=== PATIENT | female | born 1990 | race Caucasian/White ===

== ENCOUNTER 2020-12-06 09:08 | Emergency (ER) | payer OTHER, SELFPAY ==
[2020-12-06 09:17] VITALS: BP 119/73; PULSE 55; RESP 18; TEMP 37.2; O2SAT 100
--- NOTE | 2020-12-06 09:45 | ED.FEMALEGU ---
HPI - Female Genitourinary General Chief complaint: Urogenital-Female Stated complaint: poss kidney infection Time Seen by Provider: 12/06/20 09:40 Source: patient, RN notes reviewed and old records reviewed Mode of arrival: ambulatory Limitations: no limitations History of Present Illness HPI Narrative: 30 year old female who presents to [facility] care with complaints of right lower back pain which radiates to her side but does not go into her abdomen since 6pm last night. Patient states that she has history of urinary tract infections in the past but has never had a kidney stone. Patient denies any known fevers, chills or sweats or any nausea or vomiting or diarrhea, admits to burning with urination and frequency. Patient states that she didn't sleep hardly at all last night due to her discomfort, has not taken any OTC medications. MD elicited complaint: flank pain Related Data Home Medications Medication Instructions Recorded Confirmed Iud 12/06/20 Allergies Allergy/AdvReac Type Severity Reaction Status Date / Time NUTMEG Allergy Severe HIVES, Uncoded 12/06/20 09:30 facial and throat swelling Review of Systems Review of Systems: Narrative: CONSTITUTIONAL: Denies fever, chills, or sweats. EYES: Denies visual changes, redness, or discharge. ENT: Denies rhinorrhea, congestion, sore throat, or otalgia. CARDIOVASCULAR: Denies chest pain, palpitations, or edema. RESPIRATORY: Denies cough or dyspnea. GASTROINTESTINAL: right sided back pain radiating to her side but not into the lower abdominal area,no nausea, vomiting, or diarrhea. GENITOURINARY:positive dysuria or hematuria. SKIN: Denies rash or itching. MUSCULOSKELETAL: right sided back pain,no joint pain, or myalgia. NEUROLOGIC: Denies headache, numbness, or weakness. PSYCHIATRIC: Denies anxiety or depression. All systems reviewed & are unremarkable except as noted in HPI and below PMFSH Past Medical History Medical History (Updated 12/06/20 @ 10:01 by Maliha Nelson NP) UTI (urinary tract infection) Surgical History Surgical History (Updated 12/06/20 @ 09:50 by Maliha Nelson NP) Hx of appendectomy Hx of tonsillectomy Social History Social History (Updated 12/06/20 @ 09:51 by Maliha Nelson NP) Smoking status: Never smoker Alcohol intake: current Alcohol use details: social Substance use: never Living arrangements: with family Gender identity (if verbalized by the patient): Female Comments At time of signature, agree with nursing past medical, surgical, social and family history. There is no relevant family history pertinent to the presenting complaint Exam Narrative: Exam Narrative: GENERAL: Well-appearing, well-nourished, and in no acute distress. HEAD: Normocephalic, atraumatic. EYES: PERRLA and EOMI. ENT: Nares clear, no rhinorrhea or epistaxis. Mucous membranes moist. TM's normal with good light reflex, throat pink with no lesions or exudates, NECK: Supple. no lymphadenopathy CHEST: Clear to auscultation. No respiratory distress.SAO2 100% on room air HEART: Regular rate and rhythm. No murmur heard. Normal peripheral pulses. ABDOMEN: Soft, nontender, nondistended, normal active bowel sounds some radiation of pain from right lower back to right side but not into abdomen. pain on palpation to right back EXTREMITIES: Normal range of motion. No edema. SKIN: Warm, dry, no rash. NEURO: No focal deficits. Alert and oriented x3. Course Vital Signs Vital signs: Vital Signs Temperature 37.2 C 12/06/20 09:17 Pulse Rate 55 L 12/06/20 09:17 Respiratory Rate 18 12/06/20 09:17 Blood Pressure 119/73 12/06/20 09:17 Pulse Oximetry 100 12/06/20 09:17 Temperature 37.2 C 12/06/20 09:17 Pulse Rate 55 L 12/06/20 09:17 Respiratory Rate 18 12/06/20 09:17 Blood Pressure 119/73 12/06/20 09:17 Pulse Oximetry 100 12/06/20 09:17 MDM - Female Genitourinary MDM Narrative Medical decision m
== END 2020-12-06 10:14 | disposition home or self-care (01) ==
PROVIDERS: Emergency Provider Registered Nurse
DX: N39.0 Urinary tract infection, site not specified (principal)
CPT/HCPCS: 81003; 87086; 87088; 99203; G0463

== ENCOUNTER 2022-10-20 10:43 | Outpatient (CLI) | payer OTHER, SELFPAY ==
--- NOTE | ~2022-10-20 | XR_ITS ---
EXAMINATION: XR chest 2V 10/20/2022 11:00 INDICATION: Cough for 10 days PROCEDURE: 2 view chest COMPARISON: No prior studies for comparison. FINDINGS: The lungs are clear. The cardiomediastinal silhouette is within normal limits. There are no pleural effusions. There is no pneumothorax suspected. IMPRESSION: 1: NO ACUTE CARDIOPULMONARY DISEASE. Reviewed, dictated and finalized at location L.
== END 2022-10-20 10:44 ==
PROVIDERS: PCP Physician Assistant; Visit Provider Physician Assistant
DX: R05.9 Cough, unspecified (principal)
CPT/HCPCS: 71046

== ENCOUNTER 2024-12-12 15:11 | Outpatient (CLI) | payer BC, SELFPAY ==
--- NOTE | ~2024-12-12 | US_ITS ---
COMPLETE AND LIMITED MATERNAL ULTRASOUND (Doppler ultrasound interrogation techniques used as n eeded for this exam.) Ordering provider: John Giron MD History: . anatomy . Comparison: None. Findings: : Single intrauterine fetus with heart rate measured at 159 bpm which is within normal limits. presentation: Vertex. Placenta: Posterior. 4.4 cm distance from the cervix. --SCREENING OF ANATOMY: Heart (4 chambers): Seen and unremarkable. Brain survey: Unremarkable. Lateral ventricle measures 0.6 cm. Cerebellum measures 1.8 cm. Nuchal fold measures 0.5 cm. Cisterna magna is 0.4 cm. Abdomen: Unremarkable. Kidneys measures 1 cm and 1.1 cm. Cord insertion: Unremarkable. 3 vessel cord: Present and unremarkable. Bladder: Unremarkable. Kidneys: Unremarkable. Spine: Unremarkable. -- BIOMETRICS: BPD: 45.8 mm = 19 weeks and 6 days HC: 164.6mm = 19 weeks and 1 day FL: 30.5 mm = 19 weeks and 3 days AC: 147.8 mm = 20 weeks and 0 days HC/AC: 1.11. FL/BPD: 66.59. FL/AC: 20.64. CI: 80.35 Mean US age is 19 weeks and 4 days for an PRANEETH on April. Extrapolated weight is 308.75 g. EFW/GP is 85.1% Three vessel cord is seen. Amniotic fluid volume is subjectively within normal limits. No evidence f or significant placental anomalies including placenta previa. The cervical length is 3.7 cm which is within normal limits. MATERNAL: Otherwise, unremarkable limited maternal ultrasound. IMPRESSION: UNREMARKABLE COMPLETE AND LIMITED MATERNAL US. Single live fetus of Vertex presentation. Reviewed, dictated and finalized at location A.
== END 2024-12-12 15:12 | disposition home or self-care (01) ==
PROVIDERS: PCP Physician Assistant; Visit Provider Obstetrics & Gynecology
DX: Z36.9 Encounter for antenatal screening, unspecified (principal); Z3A.00 Weeks of gestation of pregnancy not specified
CPT/HCPCS: 76805

== ENCOUNTER 2025-03-14 14:23 | Outpatient (CLI) | payer BC, SELFPAY ==
[2025-03-14 15:29] LABS: Syphilis IgG/IgM Antibody Non-Reactive (Nonreactive)
== END 2025-03-14 14:24 | disposition home or self-care (01) ==
LOC: ANHLAB 14:24
PROVIDERS: PCP Physician Assistant; Visit Provider Nurse Practitioner Obstetrics & Gynecology
DX: Z34.90 Encounter for supervision of normal pregnancy, unspecified, unspecified trimester (principal); Z3A.00 Weeks of gestation of pregnancy not specified
CPT/HCPCS: 36415; 86593

== ENCOUNTER 2025-05-09 10:54 | Outpatient (CLI) | payer BC, SELFPAY ==
--- OUTSIDE RECORDS SUMMARY | 2025-05-09 11:40 | XMS_ITS | Encounter Summary ---
Author Organization [facility] Address [address] [place] [address] Care Team Providers Care Recycling Program Manager Name Role Phone Unavailable Primary Care Provider Unavailabl e Encounter Details Date Type Department Care Team (Late st Contact Info) Description 10/26/2022 Lab Requisition [facility] - Derm[facility] Lab [address] [place] [phone] Sheree Morris MD [address] [place] [address] [place] [phone] Neoplasm of uncertain behavior of skin Social History Tobacco Use Types Packs/Day Years Used Date Smoking Tobacco: Never Assessed Comments Unknown Sex and Gender Information Value Date Recorded Sex Assigned at Not on file Legal Sex Female 4:25 PM CDT Gender Identity Not on file Sexual Orientation Not on file documented as of this encounter Plan of Treatment Not on file documented as of this encounter Procedures Procedure Name Priority Date/Time Associated Diagnosis Comments DERMATOPATHOLOGY Routine 10/26/2022 3:33 AM CDT Neoplasm of uncertain behavior of skin [ICD-10-CM] documented in this encounter Results * DERMATOPATHOLOGY (10/26/2022 3:33 AM CDT) Case Report Dermatopathology Report Case: [id number] Authorizing Provider: Sheree Morris MD Collected: 10/26/2022 03:33 AM Ordering Location: [facility] Lab Received: 10/27/2022 04:55 PM Pathologist: Shae Graves MD Specimen: Skin, right inframammary 1:33 PM CDT DERMATOPATHOLOGY LABORATORY Final Diagnosis Specimen A. 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 The specimen consists of a shave biopsy measuring 7x5x2 mm. Jar 0. 3 1:33 PM CDT DERMATOPATHOLOGY LABORATORY Microscopic Description Specimen A. SKIN, right inframammary: There are nests of melanocytes at the dermal-epidermal junction and within the dermis. 3 1:33 PM CDT DERMATOPATHOLOGY LABORATORY Disclaimer An external and internal positive and negative controls are appropriate for the histochemical, immunohistochemical and immunofluorescence stain(s) in this case (if any), except where stated explicitly. The performance characteristics of the stain(s) cited in this report were developed and its performance characteristic determined by the Dermatopathology Laboratory at [facility], directed by Dr. Lalo Naylor. These tests need not be, and therefore are not, approved by the [place] Food and Drug Administration. The tests are used for clinical purposes. Billing Codes Specimen Charges Stain Charges 87173 1 3 1:33 PM CDT DERMATOPATHOLOGY LABORATORY Embedded Images 3 1:33 PM CDT DERMATOPATHOLOGY LABORATORY Pathology/Cytolo gy TISSUE SPECIMEN FROM SKIN / Unknown 10/26/2022 3:33 AM CDT 10/27/2022 4:55 PM CDT us Sheree Morris MD LAB - PATHOLOGY/CYTOLOGY ORDERAB LES Final Result DERMATOPATHOLOGY LABORATORY [facility] Department of Dermatology [address], [address] [phone] documented in this encounter Visit Diagnoses Diagnosis Neoplasm of uncertain behavior of skin documented in this encounter
--- OUTSIDE RECORDS SUMMARY | 2025-05-09 11:41 | XMS_ITS | Clinical Summary ---
Author Organization [facility] Address [address] [place] [address] Care Team Providers Care University Teacher Name Role Phone Unavailable Primary Care Provider Unavailabl e Source Comments [facility],non-owned Affiliates and Associated Physician Practices is amultiple site organization consisting of ambulatory clinics and hospital sitesin [place], [place], [place] and [place]. This disclosure is being madepursuant to the Care Everywhere program and may not contain all information available regarding this patient. Last updated 18.[facility] Social History Tobacco Use Types Packs/Day Years Used Date Smoking Tobacco: Never Assessed Comments Unknown Sex and Gender Information Value Date Recorded Sex Assigned at Not on file Legal Sex Female 4:25 PM CDT Gender Identity Not on file Sexual Orientation Not on file Plan of Treatment Health Maintenance Due Date Last Done Comments HIV SCREENING 09/13/2007 HEPATITIS C SCREENING 09/08/2010 DTAP/TDAP/TD VACCINES (1 - Tdap) 09/13/2011 HEPATITIS B VACCINE (1 of 3 - 19+ 3-dose series) 09/13/2011 Cervical Cancer Screening 2013 PAP SMEAR 2013 HPV VACCINE (1 - 3-dose SCDM series) 09/13/2019 PAP with HPV 2022 DEPRESSION SCREENING 06/05/2024 COVID-19 VACCINE (1 - 2024-2 6 season) 2025 INFLUENZA VACCINE (#1) 2025 ZOSTER VACCINE (1 of 2) 2042 HIB VACCINE Aged Out No longer eligi ble based on patient's age to complete this topic MENINGOCOCCAL (Group B) VACC INE SHARED DECISION-MAKING Aged Out No longer eligibl e based on patient's age to complete this topic MENINGOCOCCAL GROUPS A/C/Y/W VACCINE Aged Out No longer eligible b ased on patient's age to complete this topic PNEUMOCOCCAL VACCINE Aged Out No long er eligible based on patient's age to complete this [place] [place] [address] [facility] Address: [facility] [id number] [id number]
== END 2025-05-09 11:40 | disposition home or self-care (01) ==
LOC: ANHOBOP 11:38 → ANHLDR 11:39
PROVIDERS: PCP Physician Assistant; Visit Provider Obstetrics & Gynecology
DX: Z34.90 Encounter for supervision of normal pregnancy, unspecified, unspecified trimester (principal); Z3A.00 Weeks of gestation of pregnancy not specified
CPT/HCPCS: 84112

== ENCOUNTER 2025-05-11 15:40 | Inpatient (IN) | payer BC, SELFPAY ==
[2025-05-11] VITALS (14 sets, daily range): BP systolic 119–137; BP diastolic 67–99; PULSE 55–88; TEMP 36.6–37; BMI 35.4
--- OUTSIDE RECORDS SUMMARY | 2025-05-11 15:46 | XMS_ITS | Data Portability ---
Author Organization [facility] Address [address] [place] [address] Care Team Providers Care Sand Plant Attendant Name Role Phone CALLUM LUGO Baggage Smasher TONY TAVERAS [facility] crinologist Assessment No assessment recorded. Plan of Treatment Reminders Order Date Submit Date Provider Last Modified By Organization Details Last Modified Time Details Appointments None recorded. Lab None recorded. Referral None recorded. Procedures None recorded. Surgeries None recorded. Imaging None recorded. Medication Orders escitalopra m 10 mg tablet 2023 024 [id number], [address], [place], [place], [id number], 16:31:44 Patient TargetsNo targets recorded. Patient Instructions Encounter Date Encounter Id Patient Instructions Last Modified By Organization Details Last Modified Time 04/15/2024 [id number] A healthy lifestyle: care instructions [email or web address] Not available 04/15/2024 16:31:39 Reason for Referral None Reported. Results Created Date Observation Date Name Description Value Unit Range Abnormal Flag Note LastModifiedBy Organization Detail LastModifiedTime 12/18/1912/12/2024 US, obste tric No observ ation record ed. [email or web address] [facility] [address], [place], [address], 12/20/2024 11:06:25 04/23/2004/09/2025 US, obste tric No observ ation record ed. BARCODE Not Available 2024 15:31:26 Result Notes None recorded. Problems Name Problem SNOMED Code Status Onset Date Resolution Date Notes Provider Name and Address Organization Details Recorded Time Body mass index 25-29 - overweight 741019057 Active 2023 Phong Negrete MA null, [place] - [facility] 4 16:07:27 Generalized anxiety disorder 25035489 Active 2023 DAJUAN Lorenzo Attn: Accountin g,[address] [place], [address], [facility] - [facility] 4 11:02:57 Depressive disorder 96644065 Active 2023 DAJUAN Lorenzo Attn: Accountin g,[address] [place], [address], [facility] - [facility] 4 11:03:07 Overweight 444910067 Active 2023 DAJUAN Lorenzo Attn: Accountin g[address] [place], [address], [facility] - SI 4 11:03:19 Positive screening for depression on PHQ-9 (Patient Health Questionnai re 9) 5897928260766 00 Active 2023 DAJUAN Lorenzo Attn: Accountmontserrat g,[address] [place], [address], [facility] - [facility] 4 11:04:19 Problem Notes None recorded. Procedures Surgical History Date Name Laterality Status Provider Name and Address Organization Details Recorded Time Appendectomy completed Phong Negrete MA [place] - [facility] 04/15/2024 16:06:05 Tonsillectomy completed Phong Negrete [place] 04/15/2024 16:06:10 LEEP completed Phong Negrete MA [place] - [facility] 04/15/2024 16:06:15 Imaging Results None recorded. Procedure Notes None recorded. Medical Equipment None Reported. Allergies No known drug allergies Medications Name Sig Start Date Stop Date Status Note LastModified by Organization Details LastModified Time h.c.g trigger 6500units /ml INJECT 6,500 UNITS SUBCUTAN EOUSLY SINGLE DOSE DIRECTED TRIGGER WHEN INSTRUCT ED active Not Available Not Available No t Available sharp container USE TO DISPOSE OF NEEDLES active Not Available Not Available No t Available fed-ex priority overnight MON 10/08-TU10/09 TO PT HM NO SIGNATUR E DECLINED COUNSELI FRANCISCO J KRISHNAN active Not Available Not Available No t Available progester one (micro) 200mg supp UNWRAP AND INSERT 1 SUPPOSIT ORY VAGINALL Y TWICE DAILY active Not Available Not Available No t Available doxycycli ne hyclate 100 mg capsule TAKE 1 CAPSULE BY MOUTH TWICE DAILY WITH FOOD DIRECTED 04/15 completed Not Available Not Available Not Available sertralin e 100 mg tablet TAKE 1 TABLET BY MOUTH EVERY DAY AT BEDTIME 11/28 completed Not Available Not Available Not Available clobetaso l 0.05 % topical cream APPLY TOPICALL Y TO THE AFFECTED AREA TWICE DAILY FOR 2 WEEKS 04/15 completed Not Available Not Available Not Available ciproflox acin 500 mg tablet TAKE 1 TABLET BY MOUTH TWICE DAILY 04/15 completed Not Available Not Available Not Available lorazepam 0.5 mg tablet Take 1 tablet 3 times a day by oral route as needed. active not monthly just as need as neededdo not use during pregnanc y Not Available Not Available Not Available estradiol 2 mg tablet TAKE 1 TABLET BY MOUTH TWICE DAILY active Not Available Not Available No t Available hydrocort isone 2.5 % topical cream APPLY TO AFFECTED AREAS OF THE FACE TWICE DAILY FOR 2 WEEKS NEEDED active Not Available Not Available No t Available letrozole 2.5 mg tablet TAKE 2 TABLETS BY MOUTH DAILY DIRECTED . DO NOT. START UNTIL INST active Not Available Not Available No t Available methylpre dnisolone 4 mg tablets in a dose pack FOLLOW PACKAGE DIRECTIO NS 04/15 completed Not Available Not Available Not Available sertralin e 50 mg tablet TAKE 1 TABLET BY MOUTH IN THE MORNING 11/28 completed Not Available Not Available Not Available amoxicill in 875 mg-potass ium clavulana te 125 mg tablet TAKE 1 TABLET BY MOUTH TWICE DAILY 04/15 completed Not Available Not Available Not Available Sure Comfort Insulin Syringe 1 mL 29 gauge x 1/2 USE DIRECTED [H.C.G. MEDICATI ON] TRIGGER active Not Available Not Available No t Available escitalop dudley 10 mg tablet Take 1 tablet every day by oral route. 2023 active Not Available Not Available Not Avai lable Estarylla 0.25 mg-0.035 mg tablet Take 1 tablet every day by oral route for 28 days. active Not Available Not Available No t Available Vitals Date Recorded Systolic And Diastolic Provider Name and Address Organization Details Last Updated DateTime 04/15/2024 130/80 mm[Hg] DAJUAN Lorenzo Attn: Accounting,[address] [facility] [facility], [place], [address], [facility] 04/15/2024 16:30:12 Date Recorded Body weight Respiratory rate Body mass index (BMI) Body height Oxygen saturation Heart rate Systolic And Diastolic Provider Name and Address Organization Details Last Updated DateTime 4 41303.6 3 g 18 /min 28.9 kg/m2 154.94 cm 99 % 87 /min 130/82 mm[Hg] Phong Negrete MA [facility] 16:09:05 Social History Question Answer Notes LastModified by Organizat ion Details LastModified Time Tobacco Smoking Status Former Smoker Phong Negrete MA null, [facility] 04/15/2024 16:11:50 Do You Have An Advance Directive? No Information not available 04/15/2024 Are You Blind Or Do You Have Difficulty Seeing? No Glasses/co ntacts Information not available 04/15/2024 What Is Your Level Of Caffeine Consumption? Occasional Soda/ Coffee/ Tea 1x A Day Information not available 04/15/2024 In The 14 Days Before Symptom Onset, Have You Had Close Contact With A Laboratory-confir med COVID-19 While That Case Was Ill? No Information not available 04/15/2024 In The 14 Days Before Symptom Onset, Have You Had Close Contact With A Person Who Is Under Investigation For COVID-19 While That Person Was Ill? No Information not available 04/15/2024 Have You Been To An Area Known To Be High Risk For COVID-19? No Information not available 04/15/2024 Are You Deaf Or Do You Have Serious Difficulty Hearing? No Information not available 04/15/2024 What Type Of Diet Are You Following? REGULAR Information not available 04/15/2024 Are There Any Guns Present In Your Home? No Information not available 04/15/2024 What Was The Date Of Your Most Recent Tobacco Screening? 04/15/2024 Information not available 04/15/2024 What Is Your Current Pack Years? 10-19packyear s Information not available 04/15/2024 Do You Use Your Seat Belt Or Car Seat Routinely? Yes Information not available 04/15/2024 Do You Have Smoke And Carbon Monoxide Detectors In Your Home? Yes Information not available 04/15/2024 How Much Tobacco Do You Smoke? No Information not available 04/15/2024 Do You Use Sunscreen Routinely? Yes Daily Mostiurize r- No Tanning Only With Moose Information not available 04/15/2024 Has Tobacco Cessation Counseling Been Provided? No Information not available 04/15/2024 Sex: Unknown Functional Status Question Answer Note LastModified by Organizat ion Details LastModified Time Do you use any illicit or recreational drugs? No Information not available 04/15/2024 Do you or have you ever used any other forms of tobacco or nicotine? No Information not available 04/15/2024 What is your level of alcohol consumption? Occasional Information not available 04/15/2024 Are you currently employed? Yes Information not available 04/15/2024 Are you able to care for yourself independently? 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 Occasional walk every day Information not available 04/15/2024 Mental Status Question Answer Note LastModified by Organization D etails LastModified Time Do you feel stressed (tense, restless, nervous, or anxious, or unable to sleep at night)? [id number] Information not available 04/15/2024 Family History Relationship Description Onset Age of this Age Resolved Age Notes LastModified by Organization Details LastModified Time Mother Harmful pattern of use of alcohol [email or web address] Not available 2023 16:06:43 Mother Depressive disorder [email or web address] Not available 2023 16:06:53 Brother Harmful pattern of use of alcohol [email or web address] Not available 2023 16:06:43 Brother Depressive disorder [email or web address] Not available 2023 16:06:53 Father Depressive disorder tcarterma Not available 2023 16:06:53 Father Hypertensive disorder tcarterma Not available 2023 16:06:59 Medical History Condition Response Coronary Artery Disease N Other N Atrial Fibrillation N High Blood Pressure N Kidney or Bladder Problems N Thyroid Problems N GI Problems N Depression Y COPD N Blood Clots N Have you had a mammogram in the last yea r? N Skin Problems N Anemia N Heart Attack (MS) N Anxiety Disorder N Diabetes N Muscle, Joint, or Bone Problems N Seizures/Epilepsy N Have you had a colonoscopy in the last 1 0 years? N Acid Reflux (GERD) N Cancer N Stroke N Asthma N Allergies N Have you had a PSA blood test in the las t year? N High Cholesterol N Hepatitis N Liver Disease N Headaches N Osteoporosis N Heart Failure N Gynecological History Statement/Question Response Flow Moderate Date of LMP 03/27/2024 Menses Monthly Y Duration of Flow (days) 5 Current Control Method BCPs LMP Approximate Obstetrics History GPAL:G 0 P 0 0 0 0 Immunizations Vaccine Type Date Status Note Provider Nam e and Address Organization Details Recorded Time COVID-19, mRNA, LNP-S, PF, 30 mcg/0.3 mL dose 06/16/2021 completed Phong Negrete [place] null, [place] - [facility] 04/15/2024 15:58:25 COVID-19, mRNA, LNP-S, PF, 30 mcg/0.3 mL dose 10/27/2020 completed Phong Negrete [place], [place] [facility] 04/15/2024 15:58:25 COVID-19, mRNA, LNP-S, PF, 30 mcg/0.3 mL dose 11/23/2020 completed Phong Negrete [place], [place] [facility] 04/15/2024 15:58:25 Tdap 09/21/2021 completed Phong Negrete [place], [place] - [facility] 04/15/2024 15:58:25 Past Encounters Encounter ID Performer Location Encounter Start Date Encounter Closed Date Diagnosis/Indication Diagnosis SNOMED-CT Code Diagnosis ICD10 Code Diagnosis IMO Codes Diagnosis Note [id number] Hossein Lugo MD [facility] [place] [address] [place] [address] 04/15/2024 15:29:41 04/16/2024 10:15:50 Body mass index 25-29 - overweight 475188545 Z68.28 BMI is 28.9 Overweight 083667832 E66 .3 discussed healthy diet, exercise, controllin g carbohydra mily and added sugars in the diet Adult heal th examination 769114893 Z00.00 Annual wellness exam completed Generalize d anxiety disorder 00302164 F41.1 Refill on Lexapro 10 mg daily patient is stable on this regimen Depressive disorder 3548 9007 F32.A Stable on Lexapro 10 mg daily Sore throat 100660194 J0 2.9 Patient has a mild sore throat today which does appear related to drainage or viral continue to monitor. No signs of strep. Positive s creening for depression on PHQ-9 (Patient Health Questionnaire 9) 3042093967 68737 Z13.31 Patient scored a 10 on her screening today. A lot of this is related to the stress of infertilit y treatments . She does continue Lexapro 10 mg daily which is category safe. Health Concerns Section Related Observation LastModified by Organization Detai ls LastModified Time None Recorded Concern Status LastModified by Organization Details LastModified Time None Recorded Advance Directives Directive N: Payers Insurance Date Sequence Insurance Name Policy Number Policy George Covered Member ID George Member ID Guarantor Name 05/06/2024 1 [facility] [id number] [facility] [id number] Rhonda Sexton Notes Date Note Type Note Provider Name and Address Organization Details Recorded Time 04/15/2024 text/html Anxiety/Depressi onRe ported by PatientPatient is currently stable on Lexapro 10 mg daily. There is heightened anxiety and depression present during infertility treatments. Patient does need a refill Annual wellness exam DAJUAN Lorenzo Attn: Accounting[address] [facility], [place], [address], [facility] 05/03/2024 11:04:24 OBGyn Episode No OBEpisode recorded.
--- OUTSIDE RECORDS SUMMARY | 2025-05-11 15:46 | XMS_ITS | Clinical Summary ---
Author Organization [facility] [employer] Address [address] [place] [address] Care Team Providers Care Grip Assembler Name Role Phone Unavailable Primary Care Provider Unavailabl e Source Comments [facility] [employer],non-owned Affiliates and Associated Physician Practices is amultiple site organization consisting of ambulatory clinics and hospital sitesin [place], [place], [place] and [place]. This disclosure is being madepursuant to the Care Everywhere program and may not contain all information available regarding this patient. Last updated 18.[facility] [employer] Social History Tobacco Use Types Packs/Day Years [...] to complete this topic [place] [address] [employer]
--- OUTSIDE RECORDS SUMMARY | 2025-05-11 15:46 | XMS_ITS | Data Portability ---
Author Organization [facility] [employer], Main Office Address [address] [place] [address] Assessment No assessment recorded. Plan of Treatment Reminders Order Date Submit Date Provider Last Modified By Organization Details Last Modified Time Details Appointments None recorded. Lab CMP, serum or plasma 2022 023 [facility], [address], [place], [address], 3 14:36:05 urinalysis complete, reflex culture 2022 023 [facility], [address], [place], [address], 3 14:36:07 CBC w/ auto diff 2022 023 [facility], [address], [place], [address], 3 14:36:06 TSH + free T4, serum 2022 023 [facility], [address], [place], [address], 3 14:36:03 vitamin B12 + folate, serum or blood 2022 023 [facility], [address], [place], [address], 3 14:36:09 lipid panel, serum 2022 023 [id number], [address], [place], [address], 3 14:36:04 HbA1c (hemoglobin A1c), blood 2022 023 [id number], [address], [place], [address], 3 14:36:06 Referral None recorded. Procedures None recorded. Surgeries None recorded. Imaging XR, chest, 2 view - cough, drenching night sweats, chill x 10 days 2022 023 [facility], [facility], [address] [address], [place], [address], 3 12:10:14 Medication Orders sertraline 50 mg tablet 2022 023 [email or web address] [facility][id number], [address], [place], [id number], 4 14:54:29 Augmentin 875 mg-125 mg tablet 2022 023 [email or web address] 4 [facility][id number], [address], [place], [id number], 3 11:40:30 Medrol (Domingo) 4 mg tablets in a dose pack 2022 023 [email or web address] 4 [facility] #[id number], [address], [place], [id number], 3 11:40:33 Patient TargetsNo targets recorded. Patient InstructionsNo instructions recorded. Reason for Referral None Reported. Results Created Date Observation Date Name Description Value Unit Range Abnormal Flag Note LastModifiedBy Organization Detail LastModifiedTime 10/02/1910/02/2022 TSH+F REE T4 TSH 2.12 mIU/L normal Refer ence Range > or = 20 Years 0.40- 4.50 Pregn jason Range s First trime ster 0.26- 2.66 Secon d trime ster 0.55- 2.73 Third trime ster 0.43- 2.91 Not Available [address], [address], 10/02/2022 14:36:03 10/02/19 23 10/02/2022 TSH+F REE T4 T4, free 1.2 NG/dL 0.8-1. 8 normal Not Available [address], [address], 10/02/2022 14:36:03 10/02/19 23 10/02/2022 LIPID PANEL WITH RATIO S cholesterol, total 254 mg/dL <200 high Not Available [address], [address], 10/02/2022 14:36:04 10/02/19 23 10/02/2022 LIPID PANEL WITH RATIO S HDL cholesterol 76 mg/dL > or = 50 normal Not Available [address], [address], 10/02/2022 14:36:04 10/02/19 23 10/02/2022 LIPID PANEL WITH RATIO S triglyceride s 79 mg/dL <150 normal Not Available [address], [address], 10/02/2022 14:36:04 10/02/19 23 10/02/2022 LIPID PANEL WITH RATIO S LDL-choleste rol 160 mg/dL _(valentina c) high Refer ence range : <100 Dinah able range <100 mg/dL for prima ry preve ntion ; <70 mg/dL for patie nts with CHD or diabe tic patie nts with > or = 2 CHD risk facto rs. LDL-C is now calcu lated using the Alisson n-Hop helen membrenou renetta n, which is a valid ated novel metho piyush zayas acy than the Fried santiago equat ion in the estim ation of LDL-C . Alisson n SS et al. JESSICA. 2013; 310(9 0): 2061- 2068 (http ://ed ucati on.Karen pat JamHub. com/f aq/FA Q164) Not Available [employer] [address] [address] [place], [address], 10/02/2022 14:36:04 10/02/19 23 10/02/2022 LIPID PANEL WITH RATIO S chol/HDLC ratio 3.3 (calc ) <5.0 normal Not Available [facility] [address], [address], 10/02/2022 14:36:04 10/02/19 23 10/02/2022 LIPID PANEL WITH RATIO S LDL/HDL ratio 2.1 (calc ) Below avera ge Risk: <2.34 [place] ge Risk: 2.35- 4.12 Moder ate Risk: 4.13- 5.56 High Risk: >5.57 Not Available [employer] [address] [place], [address], 10/02/2022 14:36:04 10/02/19 23 10/02/2022 LIPID PANEL WITH RATIO S non HDL cholesterol 178 mg/dL _(valentina c) <130 high For patie nts with diabe mily plus 1 major ASCVD risk facto r, treat ing to a non-H DL-C goal of <100 mg/dL (LDL- C of <70 mg/dL ) is consi eliand a miguel pechucho c optio n. Not Available [facility] [address] [address] [place], [address], 10/02/2022 14:36:04 10/02/1910/02/2022 COMPR EHENS ROSEMARY METAB OLIC PANEL glucose 84 mg/dL 65-99 normal Fasti ng refer ence inter suleiman Not Available [facility] [address] [address] [place], [address], 10/02/2022 14:36:05 10/02/19 23 10/02/2022 COMPR EHENS ROSEMARY METAB OLIC PANEL urea nitrogen (BUN) 14 mg/dL 7-25 normal Not Available [address], [address], 10/02/2022 14:36:05 10/02/19 23 10/02/2022 COMPR EHENS ROSEMARY METAB OLIC PANEL creatinine 0.69 mg/dL 0.50-0 .97 normal Not Available [address], [address], 10/02/2022 14:36:05 10/02/19 23 10/02/2022 COMPR EHENS ROSEMARY METAB OLIC PANEL eGFR 120 mL/mi n/1.7 3m2 > or = 60 normal The eGFR is based on the CKD-E PI 2020 equat ion. To calcu late the new eGFR from a previ ous Creat inine or Cysta tin C resul t, go to https ://sabrina [email or web address] martin.brian greer/venkat tolliver s/ kdoqi /gfr% 5Fcal culat or Not Available [address], [address], 10/02/2022 14:36:05 10/02/19 23 10/02/2022 COMPR EHENS ROSEMARY METAB OLIC PANEL BUN/creatini ne ratio NOT APPLIC ABLE (calc ) 6-22 Not Available [address], [address], 10/02/2022 14:36:05 10/02/19 23 10/02/2022 COMPR EHENS ROSEMARY METAB OLIC PANEL sodium 136 mmol/ L 135-14 6 normal Not Available [address], [address], 10/02/2022 14:36:05 10/02/19 23 10/02/2022 COMPR EHENS ROSEMARY METAB OLIC PANEL potassium 4.3 mmol/ L 3.5-5. 3 normal Not Available [address], [address], 10/02/2022 14:36:05 10/02/19 23 10/02/2022 COMPR EHENS ROSEMARY METAB OLIC PANEL chloride 104 mmol/ L 98-110 normal Not Available [address], [address], 10/02/2022 14:36:05 10/02/19 23 10/02/2022 COMPR EHENS ROSEMARY METAB OLIC PANEL carbon dioxide 26 mmol/ L 20-32 normal Not Available [address], [address], 10/02/2022 14:36:05 10/02/19 23 10/02/2022 COMPR EHENS ROSEMARY METAB OLIC PANEL calcium 9.6 mg/dL 8.6-10 .2 normal Not Available [address], [address], 10/02/2022 14:36:05 10/02/19 23 10/02/2022 COMPR EHENS ROSEMARY METAB OLIC PANEL protein, total 7.2 g/dL 6.1-8. 1 normal Not Available [address], [address], 10/02/2022 14:36:05 10/02/19 23 10/02/2022 COMPR EHENS ROSEMARY METAB OLIC PANEL albumin 4.7 g/dL 3.6-5. 1 normal Not Available [address], [address], 10/02/2022 14:36:05 10/02/19 23 10/02/2022 COMPR EHENS ROSEMARY METAB OLIC PANEL globulin 2.5 g/dL_ (calc ) 1.9-3. 7 normal Not Available [address], [address], 10/02/2022 14:36:05 10/02/19 23 10/02/2022 COMPR EHENS ROSEMARY METAB OLIC PANEL albumin/glob ulin ratio 1.9 (calc ) 1.0-2. 5 normal Not Available [address], [address], 10/02/2022 14:36:05 10/02/19 23 10/02/2022 COMPR EHENS ROSEMARY METAB OLIC PANEL bilirubin, total 0.8 mg/dL 0.2-1. 2 normal Not Available [address], [address], 10/02/2022 14:36:05 10/02/19 23 10/02/2022 COMPR EHENS ROSEMARY METAB OLIC PANEL alkaline phosphatase 45 U/L 31-125 normal Not Available [address], [address], 10/02/2022 14:36:05 10/02/19 23 10/02/2022 COMPR EHENS ROSEMARY METAB OLIC PANEL AST 13 U/L 10-30 normal Not Available [address], [address], 10/02/2022 14:36:05 10/02/19 23 10/02/2022 COMPR EHENS ROSEMARY METAB OLIC PANEL ALT 13 U/L 6-29 normal Not Available [address], [address], 10/02/2022 14:36:05 10/02/19 23 10/02/2022 HEMOG LOBIN A1C hemoglobin A1C 4.8 %_of_ total _HGB <5.7 normal For the purpo se of tanner villavicencio for the prese nce of diabe mily: <5.7% Consi stent with the absen ce of diabe mily 5.7-6 .4% Consi stent with incre ased risk for diabe mily (pred iabet es) > or =6.5% Consi stent with diabe mily This assay resul t is consi stent with a decre ased risk of diabe mily. Curre ntly, no conse nsus exist lino lemos use of hemog lobin A1c for diagn osis of diabe mily in child nikolai. Accor ding to Ameri can Diabe mily Assoc iatio n (ADA) guide lines , hemog lobin A1c <7.0% repre sents optim al contr ol in non-p regna nt diabe tic patie nts. Diffe rent metri cs may apply to speci fic patie nt popul ation s. Stand ards of Medic al Care in Diabe mily(A DA). Not Available [employer] [address], [address], 10/02/2022 14:36:06 10/02/19 23 10/02/2022 CBC (INCL UDES DIFF/ PLT) white blood cell count 6.1 thous and/u L 3.8-10 .8 normal Not Available [facility] [address] [place], [address], 10/02/2022 14:36:06 10/02/19 23 10/02/2022 CBC (INCL UDES DIFF/ PLT) red blood cell count 4.56 clayton on/uL 3.80-5 .10 normal Not Available [facility] [address] [address] [place], [address], 10/02/2022 14:36:06 10/02/19 23 10/02/2022 CBC (INCL UDES DIFF/ PLT) hemoglobin 14.6 g/dL 11.7-1 5.5 normal Not Available [facility] [address], [address], 10/02/2022 14:36:06 10/02/19 23 10/02/2022 CBC (INCL UDES DIFF/ PLT) hematocrit 44.5 % 35.0-4 5.0 normal Not Available [facility] [address] [place], [address], 10/02/2022 14:36:06 10/02/19 23 10/02/2022 CBC (INCL UDES DIFF/ PLT) MCV 97.6 fL 80.0-1 00.0 normal Not Available [address], [address], 10/02/2022 14:36:06 10/02/19 23 10/02/2022 CBC (INCL UDES DIFF/ PLT) MCH 32.0 pg 27.0-3 3.0 normal Not Available [address], [address], 10/02/2022 14:36:06 10/02/19 23 10/02/2022 CBC (INCL UDES DIFF/ PLT) MCHC 32.8 g/dL 32.0-3 6.0 normal Not Available [address], [address], 10/02/2022 14:36:06 10/02/19 23 10/02/2022 CBC (INCL UDES DIFF/ PLT) RDW 12.5 % 11.0-1 5.0 normal Not Available [address], [address], 10/02/2022 14:36:06 10/02/19 23 10/02/2022 CBC (INCL UDES DIFF/ PLT) platelet count 318 thous and/u L 140-40 0 normal Not Available [address], [address], 10/02/2022 14:36:06 10/02/19 23 10/02/2022 CBC (INCL UDES DIFF/ PLT) MPV 9.7 fL 7.5-12 .5 normal Not Available [address], [address], 10/02/2022 14:36:06 10/02/19 23 10/02/2022 CBC (INCL UDES DIFF/ PLT) absolute neutrophils 3453 cells /uL 1500-7 800 normal Not Available [address], [address], 10/02/2022 14:36:06 10/02/19 23 10/02/2022 CBC (INCL UDES DIFF/ PLT) absolute lymphocytes 2135 cells /uL 850-39 00 normal Not Available [address], [address], 10/02/2022 14:36:06 10/02/19 23 10/02/2022 CBC (INCL UDES DIFF/ PLT) absolute monocytes 421 cells /uL 200-95 0 normal Not Available [address], [address], 10/02/2022 14:36:06 10/02/19 23 10/02/2022 CBC (INCL UDES DIFF/ PLT) absolute eosinophils 49 cells /uL 15-500 normal Not Available [address], [address], 10/02/2022 14:36:06 10/02/19 23 10/02/2022 CBC (INCL UDES DIFF/ PLT) absolute basophils 43 cells /uL 0-200 normal Not Available [address], [address], 10/02/2022 14:36:06 10/02/19 23 10/02/2022 CBC (INCL UDES DIFF/ PLT) neutrophils 56.6 % normal Not Available [address], [address], 10/02/2022 14:36:06 10/02/19 23 10/02/2022 CBC (INCL UDES DIFF/ PLT) lymphocytes 35.0 % normal Not Available [address], [address], 10/02/2022 14:36:06 10/02/19 23 10/02/2022 CBC (INCL UDES DIFF/ PLT) monocytes 6.9 % normal Not Available [address], [address], 10/02/2022 14:36:06 10/02/19 23 10/02/2022 CBC (INCL UDES DIFF/ PLT) eosinophils 0.8 % normal Not Available [facility] [address], [address], 10/02/2022 14:36:06 10/02/19 23 10/02/2022 CBC (INCL UDES DIFF/ PLT) basophils 0.7 % normal Not Available [facility] [address], [address], 10/02/2022 14:36:06 10/02/19 23 10/02/2022 URINA LYSIS , COMPL ETE W/REF NEGAR TO CULTU RE color YELLOW yellow normal Not Available [address], [address], 10/02/2022 14:36:07 10/02/19 23 10/02/2022 URINA LYSIS , COMPL ETE W/REF NEGAR TO CULTU RE appearance CLEAR clear normal Not Available [address], [address], 10/02/2022 14:36:07 10/02/19 23 10/02/2022 URINA LYSIS , COMPL ETE W/REF NEGAR TO CULTU RE specific gravity 1.017 1.001- 1.035 normal Not Available [address], [address], 10/02/2022 14:36:07 10/02/19 23 10/02/2022 URINA LYSIS , COMPL ETE W/REF NEGAR TO CULTU RE pH 7.0 5.0-8. 0 normal Not Available [facility] [address], [address], 10/02/2022 14:36:07 10/02/19 23 10/02/2022 URINA LYSIS , COMPL ETE W/REF NEGAR TO CULTU RE glucose NEGATI VE negati ve normal Not Available [address], [address], 10/02/2022 14:36:07 10/02/19 23 10/02/2022 URINA LYSIS , COMPL ETE W/REF NEGAR TO CULTU RE bilirubin NEGATI VE negati ve normal Not Available [address], [address], 10/02/2022 14:36:07 10/02/19 23 10/02/2022 URINA LYSIS , COMPL ETE W/REF NEGAR TO CULTU RE ketones NEGATI VE negati ve normal Not Available [facility] [address], [address], 10/02/2022 14:36:07 10/02/19 23 10/02/2022 URINA LYSIS , COMPL ETE W/REF NEGAR TO CULTU RE occult blood NEGATI VE negati ve normal Not Available [address], [address], 10/02/2022 14:36:07 10/02/19 23 10/02/2022 URINA LYSIS , COMPL ETE W/REF NEGAR TO CULTU RE protein NEGATI VE negati ve normal Not Available [facility] [address], [address], 10/02/2022 14:36:07 10/02/19 23 10/02/2022 URINA LYSIS , COMPL ETE W/REF NEGAR TO CULTU RE nitrite NEGATI VE negati ve normal Not Available [facility] [address], [address], 10/02/2022 14:36:07 10/02/19 23 10/02/2022 URINA LYSIS , COMPL ETE W/REF NEGAR TO CULTU RE leukocyte esterase NEGATI VE negati ve normal Not Available [address], [address], 10/02/2022 14:36:07 10/02/19 23 10/02/2022 URINA LYSIS , COMPL ETE W/REF NEGAR TO CULTU RE WBC NONE SEEN /hpf < or = 5 normal Not Available [address], [address], 10/02/2022 14:36:07 10/02/19 23 10/02/2022 URINA LYSIS , COMPL ETE W/REF NEGAR TO CULTU RE RBC NONE SEEN /hpf < or = 2 normal Not Available [address], [address], 10/02/2022 14:36:07 10/02/19 23 10/02/2022 URINA LYSIS , COMPL ETE W/REF NEGAR TO CULTU RE squamous epithelial cells 0-5 /hpf < or = 5 Not Available [address], [address], 10/02/2022 14:36:07 10/02/19 23 10/02/2022 URINA LYSIS , COMPL ETE W/REF NEGAR TO CULTU RE bacteria NONE SEEN /hpf none seen normal Not Available [address], [address], 10/02/2022 14:36:07 10/02/19 23 10/02/2022 URINA LYSIS , COMPL ETE W/REF NEGAR TO CULTU RE hyaline cast NONE SEEN /lpf none seen normal Not Available [address], [address], 10/02/2022 14:36:07 10/02/19 23 10/02/2022 URINA LYSIS , COMPL ETE W/REF NEGAR TO CULTU RE note This urine was quinton zed for the prese nce of WBC, RBC, bacte sixto, casts , and other forme d eleme nts. Only those eleme nts seen were repor jay. Not Available [address], [address], 10/02/2022 14:36:07 10/02/19 23 10/02/2022 REFLE XIVE URINE CULTU RE reflexive urine culture NO CULTU RE INDIC ATED Not Available [address], [address], 10/02/2022 14:36:08 10/02/19 23 10/02/2022 VITAM IN B12/F OLATE , SERUM PANEL vitamin B12 405 pg/mL 200-11 00 normal Not Available [address], [address], 10/02/2022 14:36:09 10/02/19 23 10/02/2022 VITAM IN B12/F OLATE , SERUM PANEL folate, serum 13.1 NG/mL normal Refer ence Range Low: <3.4 Borde rline : 3.4-5 .4 Lisa l: >5.4 Not Available [address], [address], 10/02/2022 14:36:09 04/11/20 23 04/12/2023 URINA LYSIS , COMPL ETE color DARK YELLOW yellow normal Not Available [address], [address], 04/12/2023 21:54:50 04/11/20 23 04/12/2023 URINA LYSIS , COMPL ETE appearance CLEAR clear normal Not Available [address], [address], 04/12/2023 21:54:50 04/11/20 23 04/12/2023 URINA LYSIS , COMPL ETE specific gravity 1.021 1.001- 1.035 normal Not Available [address], [address], 04/12/2023 21:54:50 04/11/20 23 04/12/2023 URINA LYSIS , COMPL ETE pH 8.0 5.0-8. 0 normal Not Available [address], [address], 04/12/2023 21:54:50 04/11/20 23 04/12/2023 URINA LYSIS , COMPL ETE glucose NEGATI VE negati ve normal Not Available [address], [address], 04/12/2023 21:54:50 04/11/20 23 04/12/2023 URINA LYSIS , COMPL ETE bilirubin NEGATI VE negati ve normal Not Available [address], [address], 04/12/2023 21:54:50 04/11/20 23 04/12/2023 URINA LYSIS , COMPL ETE ketones NEGATI VE negati ve normal Not Available [facility] [address], [address], 04/12/2023 21:54:50 04/11/20 23 04/12/2023 URINA LYSIS , COMPL ETE occult blood TRACE negati ve abnormal Not Available [address], [address], 04/12/2023 21:54:50 04/11/20 23 04/12/2023 URINA LYSIS , COMPL ETE protein NEGATI VE negati ve normal Not Available [address], [address], 04/12/2023 21:54:50 04/11/20 23 04/12/2023 URINA LYSIS , COMPL ETE nitrite NEGATI VE negati ve normal Not Available [address], [address], 04/12/2023 21:54:50 04/11/20 04/12/2023 URINA LYSIS , COMPL ETE leukocyte esterase NEGATI VE negati ve normal Not Available [address], [address], 04/12/2023 21:54:50 04/11/20 23 04/12/2023 URINA LYSIS , COMPL ETE WBC NONE SEEN /hpf < or = 5 normal Not Available [address], [address], 04/12/2023 21:54:50 04/11/20 23 04/12/2023 URINA LYSIS , COMPL ETE RBC NONE SEEN /hpf < or = 2 normal Not Available [address], [address], 04/12/2023 21:54:50 04/11/20 23 04/12/2023 URINA LYSIS , COMPL ETE squamous epithelial cells 0-5 /hpf < or = 5 Not Available [address], [address], 04/12/2023 21:54:50 04/11/20 23 04/12/2023 URINA LYSIS , COMPL ETE bacteria NONE SEEN /hpf none seen normal Not Available [address], [address], 04/12/2023 21:54:50 04/11/20 23 04/12/2023 URINA LYSIS , COMPL ETE hyaline cast NONE SEEN /lpf none seen normal Not Available [address], [address], 04/12/2023 21:54:50 04/11/20 23 04/12/2023 URINA LYSIS , COMPL ETE note This urine was quinton zed for the prese nce of WBC, RBC, bacte sixto, casts , and other forme d eleme nts. Only those eleme nts seen were repor ajy. Not Available [address] [place], [address], 04/12/2023 21:54:50 04/11/20 23 04/12/2023 CULTU RE, URINE , ROUTI NE culture, urine, routine CULTU RE, URINE , ROUTI NE Micro Numbe r: [id number] Test Statu s: Final Speci men Sourc e: Urine , clean catch Speci men Quali ty: Adequ ate Resul t: No Growt h Not Available [facility] [address], [place], [address], 04/12/2023 21:54:51 10/21/19 23 10/20/2022 XR, chest , 2 view No observ ation record ed. [email or web address] [facility] [address], [place], [address], 10/20/2022 12:29:46 Result Notes None recorded. Problems Name Problem SNOMED Code Status Onset Date Resolution Date Notes Provider Name and Address Organization Details Recorded Time Acute sinusitis 64553454 Active Not Available [facility] 3 18:03:16 Mixed anxiety and depressive disorder 893637788 Active Not Available [facility] 3 18:03:16 Urinary tract infectious disease 94033936 Active Not Available [facility] 3 18:03:16 Congestion of nasal sinus 99252291 Active Not Available [facility] 3 18:03:16 Fatigue 35273226 Active Not Available [facility] 3 18:03:16 Long-term drug therapy Active 2021 Not Available [facility] 3 18:03:16 Hand wart 012145893 Active 2021 Not Available [facility] 3 18:03:16 Right flank pain 708666734 Active 2021 Not Available [facility] 3 18:03:16 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 2022 DAJUAN Lorenzo [address] [place] [address], [facility] [address], [place], [address] , [facility] 3 16:56:58 Severe dry skin 771860595 Active 2022 DAJUAN Lorenzo [address], [place], [address] , [facility] 3 16:57:13 Night sweats 73613129 Active 2022 DAJUAN Lorenzo [address], [address], [place], [address] , [facility] 3 11:29:22 Chill 48174812 Active 2022 DAJUAN Lorenzo [address], [address], [place], [address] , [facility] 3 11:29:26 Cough 04034309 Active 2022 DAJUAN Lorenzo [address], [address], [place], [address] , [facility] 3 11:29:30 Acute urinary tract infection 107156928 Active 2022 DAJUAN Lorenzo [address], [place], [address] , [facility] 3 16:49:41 Emotional upset 849043092 Active 2022 DAJUAN Lorenzo [address], [place], [address] , [facility] 3 12:26:32 Notes:COVID-19 pos 04/19/21 Some problems listed in Document: #[id number] could not be added to this patient's chart. Please review this document and add these problems to the patient's chart manually as needed. Problem Notes None recorded. Procedures Surgical History Date Name Laterality Status Provider Name and Address Organization Details Recorded Time 06/13/19 17 Appendectomy completed Not Available [facility] 023 18:02:41 other completed Not Available [facility] 06/2022 18:02:41 Tonsillectomy completed Not Available [facility] 08/03/2022 18:02:41 extraction of wisdom tooth completed Not Available [facility] 08/03/2022 18:02:41 Imaging Results None recorded. Procedure Notes None recorded. Medical Equipment None Reported. Allergies No known drug allergies Medications Name Sig Start Date Stop Date Status Note LastModified by Organization Details LastModified Time amoxicillin 500 mg capsule TK ONE C PO TID FOR 10 DAYS active Not Available Not Available No t Available azithromyci n 250 mg tablet TAKE 2 TABLETS (500 MG) BY ORAL ROUTE ONCE DAILY FOR 1 DAY THEN 1 TABLET (250 MG) BY ORAL ROUTE ONCE DAILY FOR 4 DAYS 07/09 completed Not Available Not Available Not Available fluconazole 150 mg tablet TK 1 T PO NOW MAY REPEAT IN 48 TO 72 HOURS 05/07 completed Not Available Not Available Not Available phenazopyri dine 200 mg tablet TAKE 1 TABLET BY MOUTH THREE TIMES DAILY NEEDED FOR PAIN 01/11 completed Not Available Not Available Not Available sertraline 100 mg tablet Follow taper as ordered: one tab po daily x 7 days, then decrease to HALF tablet daily x 7 days, then stop and start Lexapro script. 2023 active Not Available Not Available Not Avai lable clobetasol 0.05 % topical cream APPLY TOPICALLY TO THE AFFECTED AREA TWICE DAILY FOR 2 WEEKS active Not Available Not Available No t Available ciprofloxac in 500 mg tablet TAKE 1 TABLET BY MOUTH TWICE DAILY 06/02 completed Not Available Not Available Not Available sulfamethox azole 800 mg-trimetho prim 160 mg tablet TK 1 T PO Q 12 H FOR 5 DAYS active Not Available Not Available No t Available tramadol 50 mg tablet TAKE 1 TABLET BY MOUTH EVERY 6 HOURS NEEDED FOR PAIN 01/11 completed Not Available Not Available Not Available ondansetron 8 mg disintegrat ing tablet DISSOLVE ONE T ON THE TONGUE Q 6 H PRF NAUSEA/VO MITING. active Not Available Not Available No t Available lorazepam 0.5 mg tablet TAKE 2 TABLETS BY MOUTH THREE TIMES DAILY NEEDED active Not Available Not Available No t Available cephalexin 500 mg capsule TAKE 1 CAPSULE BY MOUTH EVERY 12 HOURS UNTIL ALL TAKEN 01/11 completed Not Available Not Available Not Available sertraline 25 mg tablet TAKE 1 TABLET BY MOUTH EVERY DAY IN THE EVENING 08/01 completed Not Available Not Available Not Available hydrocortis one 2.5 % topical cream APPLY TO AFFECTED AREAS OF THE FACE TWICE DAILY FOR 2 WEEKS NEEDED active Not Available Not Available No t Available methylpredn isolone 4 mg tablets in a dose pack FOLLOW PACKAGE DIRECTION S 01/25 completed Not Available Not Available Not Available sertraline 50 mg tablet TAKE 1 TABLET BY MOUTH IN THE MORNING 06/28 completed Not Available Not Available Not Available amoxicillin 875 mg-potassiu m clavulanate 125 mg tablet TAKE 1 TABLET BY MOUTH TWICE DAILY 01/25 completed Not Available Not Available Not Available Cryselle (28) 0.3 mg-30 mcg tablet TAKE 1 TABLET BY MOUTH EVERY DAY 07/12 completed Not Available Not Available Not Available escitalopra m 10 mg tablet TAKE 1 TABLET BY MOUTH EVERY DAY AFTER TAPER OFF SERTRALIN E IS COMPLETE active Not Available Not Available No t Available escitalopra m 5 mg tablet Take 1 tablet every day by oral route in the evening. active Not Available Not Available No t Available Lutera (28) 0.1 mg-20 mcg tablet TK 1 T PO QD 05/07 completed Not Available Not Available Not Available intrauterin e device (IUD) 07/12 completed Not Available Not Available Not Available Vitals Date Recorded Body height Body temperature Body mass index (BMI) Body weight Heart rate Oxygen saturation Systolic And Diastolic Provider Name and Address Organization Details Last Updated DateTime 3 154.94 cm 97.8 [degF] 28.3 kg/m2 32635.8 6 g 76 /min 99 % 112/68 mm[Hg] Holli Darby RN [facility] [employer] 3 10:37:32 Date Recorded Body height Body temperature Body mass index (BMI) Body weight Respiratory rate Oxygen saturation Heart rate Systolic And Diastolic Provider Name and Address Organization Details Last Updated DateTime 3 154.94 cm 97.4 [degF] 29.1 kg/m2 63909.2 2 g 16 /min 98 % 70 /min 128/82 mm[Hg] CHAY Valentin [facility] [employer] [facility] 3 11:13:36 Date Recorded Body height Body temperature Body mass index (BMI) Body weight Respiratory rate Oxygen saturation Heart rate Systolic And Diastolic Provider Name and Address Organization Details Last Updated DateTime 3 154.94 cm 97.7 [degF] 29.1 kg/m2 16276.2 2 g 16 /min 98 % 72 /min 120/80 mm[Hg] CHAY Valentin [facility] [employer] [facility] 3 12:09:52 Date Recorded Body height Oxygen saturation Heart rate Respiratory rate Body temperature Systolic And Diastolic Provider Name and Address Organization Details Last Updated DateTime 2 154.94 cm 97 % 72 /min 16 /min 97.6 [degF] 118/80 mm[Hg] Not Available [facility] 3 18:03:05 Date Recorded Body height Body mass index (BMI) Body weight Body temperature Heart rate Oxygen saturation Systolic And Diastolic Provider Name and Address Organization Details Last Updated DateTime 3 154.94 cm 28.7 kg/m2 10748.0 4 g 97.4 [degF] 66 /min 98 % 118/80 mm[Hg] Holli Darby RN [facility] [employer] [facility] 3 15:03:41 Social History Question Answer Notes LastModified by Organizat ion Details LastModified Time Tobacco Smoking Status Never Smoker Not Available [facility] 08/03/2022 18:02:37 What Is Your Level Of Caffeine Consumption? Heavy [id number] Information not available 08/03/2022 How Much Tobacco Do You Chew? None [id number] Information not available 08/03/2022 In The 14 Days Before Symptom Onset, Have You Had Close Contact With A Laboratory-confirm ed COVID-19 While That Case Was Ill? No [id number] Information not available 08/03/2022 In The 14 Days Before Symptom Onset, Have You Had Close Contact With A Person Who Is Under Investigation For COVID-19 While That Person Was Ill? No [id number] 026 Information not available 08/03/2022 What Type Of Diet Are You Following? REGULAR [id number] Information not available 08/03/2022 Which Illicit Or Recreational Drugs Have You Used? None [id number] Information not available 08/03/2022 Have There Been Any Changes To Your Family Or Social Situation? No [id number] Information not available 08/03/2022 Do You Use Insect Repellent Routinely? No [id number] Information not available 08/03/2022 What Is Your Relationship Status? Single [id number] 026 Information not available 08/03/2022 Do You Use Your Seat Belt Or Car Seat Routinely? Yes [id number] Information not available 08/03/2022 Do You Have Smoke And Carbon Monoxide Detectors In Your Home? Yes [id number] 026 Information not available 08/03/2022 How Much Tobacco Do You Smoke? No [id number] 026 Information not available 08/03/2022 Do You Use Sunscreen Routinely? Yes [id number] Information not available 08/03/2022 Have You Recently Traveled Abroad? No [id number] 026 Information not available 08/03/2022 Do You Have Any Dietary Restrictions? No [id number] 026 Information not available 08/03/2022 Sex: Unknown Functional Status Question Answer Note LastModified by Organizat ion Details LastModified Time Do you use any illicit or recreational drugs? No [id number] Information not available 08/03/2022 Do you or have you ever used any other forms of tobacco or nicotine? No [id number].[id number] 4665 Information not available 08/03/2022 What is your level of alcohol consumption? Occasional [id number].[id number] 4636 Information not available 08/03/2022 Do you or have you ever used smokeless tobacco? Never used smokeless tobacco MIGRATION.[id number] 9068 Information not available 08/03/2022 Are you currently employed? Yes [email or web address] Information not available 08/26/2022 What is your occupation? [employer] [id number] 0558 Information not available 08/03/2022 Do you or have you ever used e-cigarettes or vape? Never used electronic cigarettes MIGRATION.[id number] 3091 Information not available 08/03/2022 What is your exercise level? Occasional [id number].[id number] 8067 Information not available 08/03/2022 Mental Status None recorded. Family History Relationship Description Onset Age of this Age Resolved Age Notes LastModified by Organization Details LastModified Time Father Peptic ulcer MIGRATION.0 [id number] Not available 08/03/2022 18:02:41 Unspecified Relation Malignant neoplasm of breast [id number].880 [id number] Not available 08/03/2022 18:02:41 Unspecified Relation Malignant neoplasm of ovary MIGRATION.791 [id number] Not available 08/03/2022 18:02:41 Unspecified Relation Blood coagulation disorder [id number].557 [id number] Not available 08/03/2022 18:02:42 Unspecified Relation Diabetes mellitus [id number] Not available 08/03/2022 18:02:42 Medical History Condition Response EYE PROBLEMS Y DEPRESSION (INCLUDING POST ) Y URINARY/BLADDER/KIDNEY PROBLEMS ANXIETY DISORDER Y Gynecological History Statement/Question Response Abnormal Pap Y Date of Last Pap 08/24/2010 Sexually Active? Y Obstetrics History GPAL:G 0 P 0 0 0 0 Past Encounters Encounter ID Performer Location Encounter Start Date Encounter Closed Date Diagnosis/Indication Diagnosis SNOMED-CT Code Diagnosis ICD10 Code Diagnosis IMO Codes Diagnosis Note [id number] DAJUAN Lorenzo [facility] [place] [address] [place] [address] 12/10/2020 00:00:00 12/27/2020 22:01:[id number] [facility] [place] [address] [place] [address] 07/12/2021 00:00:00 08/01/2021 10:50:[id number] [facility] [place] [address] [place] [address] 11/09/2021 00:00:00 12/02/2021 19:09:[id number] [facility] [place] [address] [place] [address] 03/02/2022 00:00:00 03/02/2022 14:15:[id number] [facility] [place] [address] [place] [address] 08/29/2022 10:31:51 08/29/2022 10:56:14 Mixed anxiety and depressive disorder 577699489 F34.1 stable on sertraline 100mg daily. Long-term drug therapy 799379030 Z79.899 annual routine labs are due fasting. Cholesterol screening 27 1825300 Z13.220 Diabetes m ellitus screening 757872994 Z13.1 Adult heal th examination 954359915 Z00.00 annual wellness appt completed [id number] DAJUAN Lorenzo [facility] [place] [address] [place] [address] 10/20/2022 11:06:08 10/20/2022 11:38:35 Night sweats 17448191 R61 r/o pneumonia Chill 40179774 R68.83 r/o pneumonia. Cough 61197287 R05.9 send for CXR, r/o pneumonia. start augmentin course and MDP [id number] DAJUAN Lorenzo [facility] [place] [address] [place] [address] 01/26/2023 12:02:44 01/26/2023 12:32:03 Mixed anxiety and depressive disorder 783564754 F34.1 increase to sertraline 150mg daily. call with update in 2-3 weeks. call sooner if symptoms progress [id number] DAJUAN Lorenzo [facility] [place] [address] [place] [address] 03/08/2023 14:56:38 03/08/2023 15:32:41 Mixed anxiety and depressive disorder 348335827 F34.1 Continue sertraline 150mg daily. great response on higher dosing. f/u 6 months Health Concerns Section Related Observation LastModified by Organization Detai ls LastModified Time None Recorded Concern Status LastModified by Organization Details LastModified Time None Recorded Advance Directives Directive None Recorded Payers Insurance Date Sequence Insurance Name Policy Number Policy George Covered Member ID George Member ID Guarantor Name 04/05/2023 1 [employer] (POS) [id number] Rhonda Sexton [id number] Rhonda Sexton Notes Date Note Type Note Provider Name and Address Organization Details Recorded Time 08/30/19 23 text/htm l Anxiety/DepressionReported by PatientHPIFor associated symptoms, patient reportsanxietyandshortness of breathbut reportsdenies homicidal ideations,no significant weight gain,no visual/auditory hallucinations, andno delusions. For severity, patient reportsdenies suicidal ideations,able to maintain relationships, anddoes not interfere with activities of daily living. For context, patient reportsno major life stressors.pt is stable on sertraline 100mg daily. DAJUAN Lorenzo [address] [facility], [facility] [address], [place], [address], [facility] [employer] 08/29/2022 20:01:16 10/21/19 23 text/htm l CoughReported by PatientHPIFor quality, patient reportsharsh,high pitched noise when breathing, andproductive __ (started out green but now clear)but reportsloose,non productive, andno hemoptysis. For severity, patient reportsworseningandpain with cough. For timing, patient reportsworsebut reportsactual date: (10 days ago). For associated symptoms, patient reportsdyspnea with exertion (and at rest),wheezing __,post nasal drip,heartburn, andchillsbut reportsno orthopnea,no wheezing __,no edema,no chest pain,no paroxysmal nocturnal dyspnea,no daytime somnolence,no snoring,no fever,no chills,no vomiting,no agitation, andno sleep attacks(headache, body aches, sweats, and burning up but no fever). For duration, patient reportsintermittent. For context, patient reportsnon-smoker. For modifying factors, patient reportsotc medication (dayquil, tylenol and ibuprofen).Two covid tests were neg. DAJUAN Lorenzo [address], [facility] [address], [place], [address], [employer] [facility] [employer] 10/31/2022 21:21:08 01/27/20 23 text/htm l Anxiety/DepressionReported by PatientHPIFor quality, patient reportssymptoms worse in the eveningandsymptoms worse during the day(morning are ok). For severity, patient reportsno desire to continue living,interference with household activities,interference with sleep, andinterference with workbut reportsable to maintain relationships. For context, patient reportsfamily problemsbut reportsno major life stressors. For associated symptoms, patient reportsemotional lability,high irritability,hostility,anxiety ,depression,insomnia,restlessn ess/agitation,sleep disturbances,anxiety with muscle tension,inability to make decisions,low self-esteem,despair/hopelessne ss,social withdrawal,stomach cramps,headaches,delusions, andshortness of breathbut reportsdenies homicidal ideations,no significant weight gain, andno visual/auditory hallucinations. For duration, patient reportssymptoms lasting over 2 weeks. For onset/timing, patient reportsstill present. For modifying factors, patient reportscounselling (stopped seeing her in jul.)(sertraline). DAJUAN Lorenzo [address] [employer], [address], [place], [address], [employer] 02/01/2023 21:29:45 03/08/20 23 text/htm l Anxiety/DepressionReported by PatientHPIFor context, patient reportsfamily problemsbut reportsno major life stressors. For severity, patient reportsdenies suicidal ideations,able to maintain relationships, anddoes not interfere with activities of daily living. For associated symptoms, patient reportsdenies homicidal ideations,no significant weight gain,no significant weight loss,no visual/auditory hallucinations,no delusions, andno shortness of breath. For quality, (morning are ok). For modifying factors, (sertraline). DAJUAN Lorenzo [address], [address], [place], [address], [employer] 04/04/2023 17:24:30 OBGyn Episode No OBEpisode recorded.
[2025-05-11 16:17] LABS: Hematocrit 39.5 % (37.0-47.0); Hemoglobin 13.4 g/dL (12.0-15.0); Immature Granulocyte Percent A 0.7 % (0-0.5); Lymphocytes Absolute Auto 2.88 K/mm3 (0.9-3.2); Mean Corpuscular HGB Conc 33.9 g/dl (32-36); Mean Corpuscular Hemoglobin 31.3 pg (26-34); Mean Corpuscular Volume 92.3 fl (80-100); Nucleated Red Blood Cells Absolute Auto 0.000 K/mm3 (0.0-0.012); Nucleated Red Blood Cells Perc 0.0 % (0.0-0.2); Platelet Count Result 227 k/mm3 (150-375); Red Blood Count 4.28 M/mm3 (4.2-5.4); White Blood Count 12.9 K/mm3 (4.5-10.0)
[2025-05-11] MEDS: DINOPROSTONE 10 MG VAG INSERT VAGINAL (16:40)
[2025-05-11 16:42] LABS: Cannabinoid Screen Urine Positive (Negative)
--- NOTE | 2025-05-11 16:42 | LDADM ---
This patient, Rhonda Sexton, was admitted to Labor/Delivery/Recovery 106 on 05/11/25 at 15:40. Plans for labor, pain management and were discussed with patient. Patient/family oriented to hospital policies and general routines including ID bracelet, bed and alarms, visiting hours, pain management, procedures, bathroom and other care routines, personal items, smoking policy, room service/diet and guest tray routines, infant security routines, and visiting hours. Patient/Family are encouraged to report perceived risks to care and to ask questions if they do not understand what they are told or what they should do. See OBIX for further documentation.
[2025-05-11 16:58] LABS: Syphilis IgG/IgM Antibody Non-Reactive (Nonreactive)
[2025-05-11] MEDS: diphenhydrAMINE HCl CAP 25 MG CAPSULE PO (22:50)
[2025-05-12] VITALS (223 sets, daily range): BP systolic 94–146; BP diastolic 47–106; PULSE 46–142; TEMP 36.6–37.2; O2SAT 83–100
[2025-05-12] MEDS: OXYTOCIN 30 UNITS/NS 500 ML 30 UNITS/500 ML BAG 6 UNITS IV CONT (05:47)
[2025-05-12] MEDS: LACTATED RINGERS 1,000 ML 125 ML IV CONT ×3 (05:47→17:27)
--- NOTE | 2025-05-12 08:49 | PM.IMHP2 ---
H&P: HPI History of Present Illness Date/Time: 05/12/25 08:49 Chief Complaint: Here for induction of labor Narrative: 34 y/o at 40 4/7 weeks here for induction of labor. Cervidil last night, has been withdrawn. She is feeling some contractions. Review of Systems Review of Systems: All systems reviewed & are unremarkable except as noted in HPI and below PMFSH Past Medical History Medical History Kidney stones Anxiety UTI (urinary tract infection) Surgical History Surgical History H/O LEEP [place] teeth removed Hx of appendectomy Hx of tonsillectomy Family History Family History Grandparent Cancer Social History Social History Smoking status: Never smoker Alcohol intake: current Alcohol use details: social Substance use: never Lack of Transportation: No Lack of Food: Never True Current Housing: I Have Housing Concerned About Future Housing: No Difficulty Paying Gas/Electric Bills: No Difficulty Paying for Meds: No Currently Unemployed: No Education: Bachelor's Degree Difficulty w/ Childcare or Family Care: No Living arrangements: with family Gender identity (if verbalized by the patient): Female Spiritual care concerns: No Meds Home Medications and Allergies Home Medications ?Medication ?Instructions ?Recorded ?Confirmed ?Type escitalopram oxalate 10 mg tablet 10 mg PO DAILY 12/16/24 05/11/25 History (Lexapro) docosahexaenoic acid 200 mg 1 mg PO DAILY 12/18/24 05/11/25 History capsule ( DHA) famotidine 10 mg tablet (Pepcid AC) 10 mg PO DAILY 04/10/25 05/11/25 History docusate sodium 50 mg capsule 150 mg PO DAILY 04/16/25 05/11/25 History Allergies Allergy/AdvReac Type Severity Reaction Status Date / Time NUTMEG Allergy Severe HIVES, Uncoded 05/06/25 13:46 facial and throat swelling Vital Signs Vital Signs - 24 hr 05/11/25 16:21 05/11/25 16:41 05/11/25 16:45 Temperature 97.9 F Pulse Rate 68 76 Blood Pressure 123/80 121/82 Oxygen Delivery Room Air 05/11/25 17:00 05/11/25 17:15 05/11/25 17:30 Temperature Pulse Rate 79 77 Blood Pressure 123/99 H 127/83 121/85 Oxygen Delivery 05/11/25 17:45 05/11/25 18:01 05/11/25 18:15 Temperature Pulse Rate 80 88 82 Blood Pressure 122/96 H 123/79 121/81 Oxygen Delivery 05/11/25 18:31 05/11/25 18:45 05/11/25 18:52 Temperature 98 F Pulse Rate 71 76 Blood Pressure 131/71 119/81 Oxygen Delivery 05/11/25 22:18 05/11/25 22:47 05/11/25 22:48 Temperature 98.6 F Pulse Rate 67 55 L Blood Pressure 137/72 126/67 Oxygen Delivery 05/12/25 02:45 05/12/25 03:11 05/12/25 05:20 Temperature 97.9 F 97.8 F Pulse Rate 59 L Blood Pressure 101/78 Oxygen Delivery 05/12/25 05:31 05/12/25 05:46 05/12/25 06:01 Temperature Pulse Rate 69 62 56 L Blood Pressure 120/73 118/69 106/55 L Oxygen Delivery 05/12/25 06:16 05/12/25 06:31 05/12/25 06:46 Temperature Pulse Rate 53 L 72 61 Blood Pressure 115/54 L 102/61 143/95 H Oxygen Delivery 05/12/25 07:01 05/12/25 07:16 05/12/25 07:46 Temperature Pulse Rate 61 58 L 68 Blood Pressure 140/87 130/82 124/81 Oxygen Delivery 05/12/25 08:01 05/12/25 08:16 Temperature Pulse Rate 63 58 L Blood Pressure 127/78 129/77 Oxygen Delivery Exam Const: Other: Well-developed, well-nourished female in no acute distress. Neck: Other: Neck: Trachea midline, no thyromegaly or masses. Resp: Other: Lungs: Normal respiratory effort. Clear to auscultation bilaterally. Cardio: Other: Heart: Regular rate and rhythm with normal S1-S2. GI: Other: ABD: Soft, nontender, nondistended, gravid. No guarding or rebound tenderness. No hepatosplenomegaly. NST reactive. TOCO: contractions every 2-5 min. : Other: Cervix: 1/80/-2. AROM with thinly meconium-stained fluid. IUPC placed. Vertex. Cervical exam consistent with prior LEEP. Back/Spine/Pelvis: Other: Back: No CVA tenderness. Skin: Other: Skin: No lesions, rashes or ulcers noted. Extrem: Other: Extremities: nontender with no edema Psych: Other: Mental status grossly normal, with normal mood and affect. Results Labs Labs: Short CBC 05/11/25 Range/Units 16:09 WBC 12.9 H (4.5-10.0) K/mm3 Hgb 13.4 (12.0-15.0) g/dL Hct 39.5 (37.0-47.0) % Plt Count 227 (150-375) k/mm3 Assessment and Plan Assessment and plan (1) Term : Code(s): Z34.90 - Encounter for supervision of normal , unspecified, unspecified trimester Status: Acute Assessment and Plan: A: IUP at 40 4/7 weeks, desiring induction of labor. P: Reviewed risks / benefits in detail. S/p Cervidil, now receiving oxytocin. Nursery aware of meconium. Anticipate .
[2025-05-12] MEDS: fentaNYL CITRATE INJ (*CRX) 100 MCG/2 ML VIAL 50 MCG IV PUSH (08:54)
--- NOTE | 2025-05-12 13:23 | PM.OBPNLAB ---
Pain Control Date/time seen: 05/12/25 13:23 Pain control: epidural Pelvic Exam Dilation (cm): 4 Effacement (%): 90 station: -2 Contractions Contraction frequency: 3 Contraction pattern: Regular Status status: Category l Assessment and Plan Pitocin rate (mU/min): 18 Plan: continuous present management
[2025-05-12] MEDS: ONDANSETRON INJ 4 MG/2 ML VIAL IV PUSH (17:47)
--- NOTE | 2025-05-12 23:14 | PM.OBPNLAB ---
Pain Control Date/time seen: 05/12/25 23:14 Still comfortable. Pushing well. Pelvic Exam Dilation (cm): 10 Effacement (%): 100 station: +2 Contractions Contraction frequency: 3 Contraction pattern: Regular Status status: Category l Assessment and Plan Comments: Continue pushing.
[2025-05-13] VITALS (11 sets, daily range): BP systolic 116–149; BP diastolic 56–91; PULSE 64–101; RESP 14–18; TEMP 36.4–37.1; O2SAT 98–100
[2025-05-13] MEDS: OXYTOCIN 30 UNITS/NS 500 ML 30 UNITS/500 ML BAG 125 UNITS IV CONT (00:07)
--- NOTE | 2025-05-13 00:23 | PM.OBPRVD ---
OB - Vaginal Delivery Note Procedure Delivery date: 05/13/25 Induction method: Per Cervidil Protocol Delivery augmentation: Rupture of Membranes and Pitocin Delivery monitor: External FHT, External Uterine and Internal Uterine Route of delivery: Episiotomy description: None Laceration Description: Perineal - 2nd Degree and Labial Delivery repair: vicryl (3-0) Specimen: Yes (Cord blood, placenta) Quantitative Blood Loss (ml): 350 Anesthesia type: Epidural Disposition: PACU Complications: None Narrative: 34 y/o at 40 4/7 weeks gestation who presented to the hospital for induction of labor. Cervidil was placed overnight, then withdrawn the next morning. Oxytocin was administered intravenously. Amniotomy was performed with return of thinly meconium-stained fluid. She received an epidural for pain control. Her labor progressed and her cervix dilated completely. She pushed with good effort and delivered the 's head to the perineum. A loose nuchal cord was splinted and the body delivered. The cord was reduced, and the nose and mouth were bulb suctioned. The cord was clamped and cut. The was handed off the field. Cord blood was collected. The placenta delivered spontaneously and was grossly normal in appearance. The usual 3 vessel cord was noted. A second degree midline perineal laceration was reapproximated using 3 0 Vicryl in the usual layered fashion. Excellent hemostasis resulted as did excellent reapproximation of the normal anatomy. Bilateral labial lacerations were reapproximated using figure of eight sutures of the same material. Needle and instrument counts were correct. The patient was taken to recovery room in stable condition. The infant went to the special care nursery. I was present and scrubbed for the entire delivery. [place] Baby Date of : 05/12/25 Time of : 23:55 Gestational Age by Date: 40 gender: Female Weight (pounds): 7 Weight (ounces): 15 presentation: vertex position: Left Occiput Anterior Placenta delivery description: Spontaneous and Normal Configuration Cord Vessel Description: 3 Vessels and Nuchal Cord
--- NOTE | 2025-05-13 00:27 | PM.OBDSVD ---
DS: Admitting Diagnosis Discharge Date 05/14/25 Admitting Diagnosis IUP at 40 4/7 DS: Discharge Diagnosis Discharge Diagnosis (1) (normal spontaneous vaginal delivery): Code(s): O80 - Encounter for full-term uncomplicated delivery Status: Acute OB - DS: Summary OB Procedures : NST OB Procedures Intrapartum: Spontaneous Vag Delivery OB Procedures: : None Peripartum Data Laceration Description: Perineal - 2nd Degree and Labial Episiotomy description: None Time Spent with Patient Time attestation: Total time spent providing and/or coordinating discharge services: Discharge Plan Discharge Attending physician on discharge: John Giron Discharging Clinician: John Giron Patient Disposition: Home Activity: pelvic rest Diet: regular Discharge Instructions: Call or return if temperature above 100.4? F, increased abdominal pain, increased vaginal bleeding or any new problems. Patient Language: [place] Citizen Stand Alone Forms: General Discharge Information Follow-up/Referrals: John Giron MD [Physician, [employer]] - 6 Weeks Discharge Medications: New ibuprofen 600 mg tablet 600 mg PO Q6H PRN (Reason: cramps) Qty: 30 0RF hydrocodone-acetaminophen 5-325 mg tablet 1 tablet PO Q6H PRN (Reason: pain) Qty: 20 0RF Continued escitalopram oxalate [Lexapro] 10 mg tablet 10 mg PO DAILY DHA 200 mg capsule 1 mg PO DAILY famotidine [Pepcid AC] 10 mg tablet 10 mg PO DAILY docusate sodium 50 mg capsule 150 mg PO DAILY Date of admission: 05/11/25 15:40 Primary Care Provider: NiruPhyllis Admitting Provider: John Giron Attending physician on admission: John Giron Condition: Stable
[2025-05-13] MEDS: IBUPROFEN 600 MG TABLET PO ×3 (02:10→19:27)
--- NOTE | 2025-05-13 03:07 | OBPPTRN ---
Patient transferred to post room #286 via wheelchair. Support person present. Oriented to unit, room, information board, rooming in, admission packet and security measures. Patient verbalizes understanding.
[2025-05-13] MEDS: ACETAMINOPHEN 325 MG TABLET 650 MG PO ×3 (03:20→19:28)
[2025-05-13] MEDS: BENZOCAINE 20% AER SPR (*SP) 56 GM CAN 1 SPRAY TOPICAL (04:23)
[2025-05-13] MEDS: WITCH HAZEL 40 PADS 1 PAD TOPICAL (04:23)
[2025-05-13] MEDS: ESCITALOPRAM OXALATE 10 MG TABLET PO (07:53)
[2025-05-13] MEDS: MULTIVIT/MIN/PREN/FOL AC/IRON TABLET 1 TAB PO (07:53)
--- NOTE | 2025-05-13 09:33 | P.PNOB_ITS ---
OB - PN: Subj Subjective Date/time seen: 05/13/25 09:33 Narrative: Pain OK. OB - PN: Obj Data Labs 05/11/25 16:09 OB - PN A/P Plan day: 1 Comments: A: PPD#1, doing well. P: Routine care. Exam 2 Psych: Other: AVSS ABD soft, nontender, fundus firm EXT nontender
[2025-05-13] MEDS: DOCUSATE SODIUM 100 MG CAPSULE PO ×2 (12:04→20:34)
--- NOTE | 2025-05-13 16:59 | PC.NURSE ---
[id number] Consulted with patient to assess needs related to . Discussed with mother her successes, concerns and any questions she has. Per mother infant was awake and nursed well after delivery, she plans on mostly if will but will also pump and bottle. We reviewed working with the , supporting breast, protecting her nipples with an optimal deep latch, good positioning, and good hand washing. Encouraged understanding the benefits of skin to skin, responding to feeding cues, frequencies of feeding 8-12 times in 24 hours (approximately 2-3 hours), duration of feedings, milk production, intake/output feeding sheet and signs of adequate intake encouraging swallowing at the breast. Reviewed positioning and alignment, supporting breast, off-centered (asymmetrical latch) and leading with the chin with big, open, wide gape. Infant latched optimally to the [left] breast in [football] position. Education given to the mother of how to visualize the suckling (with good rocking jaw motion) swallows (dropping of the lower jaw) and how to listen for drinking at the breast (the ka sound). The infant was [not able] to maintain latch, was sleepy but mother did hand express a few drops. Nipple care reviewed with optimal latch, good positioning and using clean hands when touching her breast. Mother putting skin to skin and will watch for feeding cues, CLC RN to check back in this afternoon. Resources used to facilitate learning were used from the [visual handouts/ tool/mom and baby guide]. Mother voiced understanding of the education shared, to call for assistance if the does not latch or if there is discomfort with . Reported to the Primary RN. 1340 CLC RN to the room to check in with mother, per mother infant was a sucking at the breast for 5 minutes, the suck wasn't as strong as the first feeding but she was also able to hand express. now asleep in the crib. Mother is going to have her bring in her Spectra breast pump from the car, she owuld like assistance setting it up, advised her to call when she is ready. Reported to the Primary RN. 1500 CLC RN to room to see if mother has fed again or if she is ready to set up her breast pump. Mother is now sleeping and father of the baby is holdinghis daughter. He was given the pumping handouts and Spectra directions to give to mother if she was not awake before CLC RN left for the day, advised him there were to other CLC RNs on the floor that could also assist her. Reported to the Primary RN. [id number] CLC RN to room to check in with mother, she was getting ready to see if infant would latch, was awake in the crib when FOB picked her up and handed her to mother. She attempted to latch her to her right breast in football but would not maintain, sleepy at the breast now, would not suck on a gloved finger either. Mother brought her own breast pump, a Spectra, she would like to use that now and see if she can give what she pumps to her . Instructions given on cleaning, care, usage, that there should be no pain, pumping schedule for milk production, collection, and storage of human milk. Patient was assessed for correct placement, flange size, to pump for comfort and nipple stretching/stimulation for adequate milk production. Parents are encouraged to record the pumping schedule on the feeding sheet.?Discussed with parents the possibility of checking a blood sugar soon if infant would not feed and also the details of the 15-15-15 feeding plan if mother is not able to produce enough colostrum when she pumps. Mother was previously told that due to her blood loss from delivery it may affect her milk supply. Mother voiced understanding of the education shared along with mom/baby guide and the pump measurement, flange fit handout for additional resource information. Reported to the Primary RN.
[2025-05-14] MEDS: HYDROcodone/acetaminophen (*CRX) 5-325 MG TABLET 1 TAB PO ×2 (00:36→05:25)
[2025-05-14] MEDS: IBUPROFEN 600 MG TABLET PO ×2 (01:30→11:00)
[2025-05-14] MEDS: MORPHINE SULFATE (*CRX) 4 MG/ML INJ 2 MG IV PUSH (02:09)
[2025-05-14 03:50] VITALS: BP 107/54; PULSE 58; RESP 17; TEMP 36.6; O2SAT 98
[2025-05-14 04:50] LABS: Hematocrit 30.2 % (37.0-47.0); Hemoglobin 10.1 g/dL (12.0-15.0)
[2025-05-14 07:55] VITALS: BP 117/79; PULSE 76; RESP 18; TEMP 36.5; O2SAT 99
[2025-05-14] MEDS: MULTIVIT/MIN/PREN/FOL AC/IRON TABLET 1 TAB PO (09:00)
[2025-05-14] MEDS: ESCITALOPRAM OXALATE 10 MG TABLET PO (09:00)
--- NOTE | 2025-05-14 09:56 | PCCCNOTE ---
Salad Counter Attendant met with patient at bedside today. Patient is alert and oriented X's 4. In entering the room patient had plenty of visitors/Family at bedside. Patient asked her family to leave the room, to speak with Salad Counter Attendant privately. Patient reports living with her spouse (Alverto). Patient reports this is their first child together and reports going the process of IVF. Baby doctor/ Registered Medical Transcriptionist listed as Dr. Tirado for follow up after discharge. Patient reports both her and her working full-time. Patient reports having a baby bed, diapers and all other resources at discharge. Mother reports having plenty of family support. The patient reports taking Lexapro for both anxiety and depression. Patient reports that she plans to breastfeed her baby. Patient denies DCFS history but did report using THC shortly during her IVF process due to stress of trying to get and reports her baby as a ?Miracle Baby.? Per nurse of patient/baby there are no concerns with the baby for drug use. Salad Counter Attendant completed an assessment to assess the well-being of the mother and the baby at this time. Mother of baby reports, no current substance use and no desire to use THC in the future. home mission worker provided education and resources for mother. There are no other concerns at this time with the mother or baby. Salad Counter Attendant will follow.
--- NOTE | 2025-05-14 10:08 | P.PNOB_ITS ---
OB - PN: Subj Subjective Date/time seen: 05/14/25 10:08 Narrative: Pain OK. Hemorrhoid is botherint her. But she thinks she would like to be discharged. OB - PN: Obj Data Labs 05/14/25 04:10 Labs: Laboratory Results - last 24 hr 05/14/25 04:10 Hgb 10.1 L D Hct 30.2 L OB - PN A/P Plan Comments: A: PPD#2, doing well. P: Home to f/u 6 weeks. Exam 2 Psych: Other: AVSS ABD soft, nontender, fundus firm EXT nontender
[2025-05-14] MEDS: DOCUSATE SODIUM 100 MG CAPSULE PO (11:00)
[2025-05-14] MEDS: ACETAMINOPHEN 325 MG TABLET 650 MG PO (11:00)
--- NOTE | 2025-05-14 13:57 | PC.NURSE ---
0800 Consulted with patient to assess needs related to . Discussed with mother her successes, concerns and any questions she has. Per mother infant has been latching better but did cluster feed last night, reminded her that was normal for to do. We reviewed working with the , supporting breast, protecting her nipples with an optimal deep latch, good positioning, and good hand washing. Encouraged understanding the benefits of skin to skin, responding to feeding cues, frequencies of feeding 8-12 times in 24 hours (approximately 2-3 hours), duration of feedings, milk production, intake/output feeding sheet and signs of adequate intake encouraging swallowing at the breast. Reviewed positioning and alignment, supporting breast, off-centered (asymmetrical latch) and leading with the chin with big, open, wide gape. latched optimally to the [left] breast in [cradle] position. Education given to the mother of how to visualize the suckling (with good rocking jaw motion) swallows (dropping of the lower jaw) and how to listen for drinking at the breast (the ka sound) and that needs to stay close to maintain a deeper latch, recommended cross cradle or football with next feeding. The was [able/] to maintain latch without discomfort to mother. Nipple care reviewed with optimal latch, good positioning and using clean hands when touching her breast. Resources used to facilitate learning were used from the [visual handouts/ tool/mom and baby guide]. Mother voiced understanding of the education shared, to call for assistance if the does not latch or if there is discomfort with . Reported to the Primary RN. 1250 Mother called CLC RN to the room to check latch. Infant was latched optimally to the [left] breast in [cross cradle] position. The was [able] to maintain latch without discomfort to mother. Infant was in her swaddle wrap, educated mother on unwrapping her if infant began to be sleepy, that would allow her to be closer to mother and able to do skin to skin while feeding. Mother voiced understanding of the education shared, to call for assistance if the does not latch or if there is discomfort with . Reported to the Primary RN.
[2025-05-16 11:49] VITALS: BP 134/89; PULSE 84; RESP 18; TEMP 37; O2SAT 100
== END 2025-05-14 19:45 | disposition home or self-care (01) | DRG 806 ==
LOC: ANHLDR 05-13 00:28 → ANHOB2 05-13 03:08
PROVIDERS: Admitting Provider Obstetrics & Gynecology; PCP Physician Assistant; Visit Provider Obstetrics & Gynecology
DX: O77.0 Labor and delivery complicated by meconium in amniotic fluid (principal); O87.2 Hemorrhoids in the puerperium; Z37.0 Single live birth; Z3A.40 40 weeks gestation of pregnancy; O99.344 Other mental disorders complicating childbirth; F41.9 Anxiety disorder, unspecified; O70.1 Second degree perineal laceration during delivery
CPT/HCPCS: 36415; 80307; 85014; 85018; 85025; 86593; 86850; 86900; 86901; A9270; J2270; J2405; J2590; J2795; J3010; J7120